=== PATIENT | male | born 1990 | race Caucasian/White ===

== ENCOUNTER 2020-08-06 10:19 | Emergency (ER) | payer BC, SELFPAY ==
[2020-08-06 10:30] VITALS: BP 131/80; PULSE 73; RESP 16; TEMP 35.8; O2SAT 100
--- NOTE | 2020-08-06 10:51 | ED.GENADULT ---
HPI - General Adult General Chief complaint: Headache Stated complaint: Migraine Time Seen by Provider: 08/06/20 10:22 Source: patient Mode of arrival: ambulatory Limitations: no limitations History of Present Illness HPI narrative: Patient presents for evaluation of headache that started last night. He states pain has been constant since that time. Pain is in occipital region, described as throbbing and rated 7/10 in severity. He denies overt photophobia, phonophobia, nausea or vomiting. He tried taking Tylenol and ibuprofen without much improvement in his symptoms thereafter. He states he had a similar episode on 07/20/20. He saw his PCP and was given an injection of toradol at that time. He states medication was effective for about 6-7 hrs before his symptoms returned. He had another episode about one week ago and symptoms resolved without intervention. He denies dysphagia, problems with memory/speech, lateralizing deficits. Related Data Home Medications Medication Instructions Recorded Confirmed sumatriptan succinate 50 mg PO .PRN PRN 08/06/20 08/06/20 Allergies Allergy/AdvReac Type Severity Reaction Status Date / Time No Known Allergies Allergy Verified 08/06/20 10:43 Review of Systems Review of Systems: Narrative: CONSTITUTIONAL: Denies fever, chills, or sweats. EYES: Denies visual changes, redness, or discharge. ENT: Denies rhinorrhea, congestion, sore throat, or otalgia. CARDIOVASCULAR: Denies chest pain, palpitations, or edema. RESPIRATORY: Denies cough or dyspnea. GASTROINTESTINAL: Denies abdominal pain, nausea, vomiting, or diarrhea. GENITOURINARY: Denies dysuria or hematuria. SKIN: Denies rash or itching. MUSCULOSKELETAL: Denies back pain, joint pain, or myalgia. NEUROLOGIC: Reports headache. Denies numbness, dizziness, or weakness. PSYCHIATRIC: Denies anxiety or depression. [facility] Past Medical History Medical History (Updated 08/06/20 @ 10:59 by STEPHANY Jones, JAZMYNE) No pertinent past medical history Surgical History Surgical History History of shoulder surgery Family History Family History Mother No pertinent past medical history Father No pertinent past medical history Social History Social History (Updated 08/06/20 @ 10:52 by Stiven Naranjo, [facility], ) Smoking status: Never smoker Alcohol intake: current Alcohol use details: social Substance use: never Living arrangements: with family Gender identity (if verbalized by the patient): Male Sexual Orientation (if Verbalized by the Patient): Straight or Heterosexual Spiritual care concerns: No Exam Narrative: Exam Narrative: GENERAL: Well-appearing, well-nourished, and in no acute distress. HEAD: Normocephalic, atraumatic. EYES: PERRLA and EOMI. ENT: Nares clear, no rhinorrhea or epistaxis. Mucous membranes moist. Oropharynx without tonsillar hypertrophy exudate or other lesions. Bilateral TMs pearly black nonbulging NECK: Supple. No adenopathy or masses. No carotid bruits or JVD CHEST: Clear to auscultation. No respiratory distress. No wheezes rales or rhonchi HEART: Regular rate and rhythm. No murmur heard. Normal peripheral pulses. ABDOMEN: Soft, nontender, nondistended, normal active bowel sounds. EXTREMITIES: Normal range of motion. No edema. SKIN: Warm, dry, no rash. NEURO: No focal deficits. Alert and oriented x3. Normal [id number] exam. Able to perform rapid alternating movements without difficulty. Comprehensive neurological exam intact. PSYCH: Normal mood and affect. Course Course Emergency Course: This is a 30-year-old male that presents with complaints of headache as of last night. He had similar symptoms on the 10th of this month and responded well to Toradol. He also had an additional episode about one week ago that resolved without intervention. His symptoms a
[2020-08-06] MEDS: KETOROLAC (*BKC) 60 MG/2 ML VIAL IM (10:59)
== END 2020-08-06 11:30 | disposition home or self-care (01) ==
PROVIDERS: Emergency Provider Nurse Practitioner; PCP Family Medicine Sports Medicine
DX: R51.9 Headache, unspecified (principal)
CPT/HCPCS: 96372; 99203; G0463; J1885

== ENCOUNTER 2023-08-09 18:40 | Emergency (ER) | payer BC, SELFPAY ==
--- NOTE | 2023-08-09 18:48 | ED.EXTPRO ---
HPI - Extremity Problem General Chief complaint: Extremity Problem,Nontraumatic Stated complaint: right elbow pain/work note Time Seen by Provider: 08/09/23 18:50 Source: patient, RN notes reviewed and old records reviewed Mode of arrival: ambulatory Limitations: no limitations History of Present Illness HPI Narrative: Patient presents with complaints of right elbow pain. Patient reports that he was doing repetitive tasks with the right hand for most of the day yesterday, noted pain and mild swelling by last night. Has been taking Tylenol with minimal relief. 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 Related Data Home Medications Medication Instructions Recorded Confirmed atogepant 60 mg tablet (Qulipta) 60 mg PO DAILY 08/09/23 08/09/23 buspirone 7.5 mg tablet 7.5 mg PO BID 08/09/23 08/09/23 citalopram 10 mg tablet 10 mg PO DAILY 08/09/23 08/09/23 Allergies Allergy/AdvReac Type Severity Reaction Status Date / Time No Known Allergies Allergy Verified 08/09/23 18:42 Review of Systems Review of Systems: All systems reviewed & are unremarkable except as noted in HPI and below Constitutional: Constitutional: Reports no additional constitutional complaints ENT: Reports system reviewed and no additional complaints, except as documented Cardiovascular: Cardiovascular: Reports no additional cardiovascular complaints Respiratory: Respiratory: Reports no additional respiratory complaints Musculoskeletal: Musculoskeletal: Reports arthralgias (Right elbow) [facility] Past Medical History Medical History No pertinent past medical history Surgical History Surgical History History of shoulder surgery Family History Family History Mother No pertinent past medical history Father No pertinent past medical history Social History Social History Smoking status: Never smoker Alcohol intake: current Alcohol use details: social Substance use: never Living arrangements: with family Gender identity (if verbalized by the patient): Male Sexual Orientation (if Verbalized by the Patient): Straight or Heterosexual Spiritual care concerns: No Comments At the time of my signature, I reviewed and agree with the nursing past medical, surgical, social, and family history. There is no relevant family history pertinent to the patient complaint. Exam Const: General: cooperative, no acute distress, alert and awake Orientation/consciousness: oriented to person, oriented to place and oriented to time HENMT: Head: normal to inspection Resp: Effort & Inspection: normal respiratory effort and able to speak in complete sentences Auscultation: clear to auscultation bilaterally, no crackles, no rales, no rhonchi and no wheezes Cardio: Palpation: normal PMI Rate: regular rate Rhythm: regular rhythm Heart sounds: S1 normal heart sound present and S2 normal heart sound present Neuro: General: oriented to person, oriented to place and oriented to time Cranial nerves: Yes CN's II-XII intact bilaterally Extrem: Right upper extremity: elbow/forearm swelling of the lateral epicondyle (mild) and normal ROM; no unusual warmth and no deformity Psych: Appearance: grossly normal Thought process: Normal thought process present Insight: Good insight present (Psych) Judgement: Good judgement present (Psych) Course Course Level of Care: Express Care Visit Vital Signs Vital signs: Reviewed MDM - Extremity (Nontraumatic) MDM Narrative Medical decision making narrative: Patient with full range of motion, nontraumatic right elbow pain consistent with tennis elbow. Rest ice compression elevation discussed. Prednisone for 5 days, work note for 3 days. Follow
[2023-08-09 18:49] VITALS: BP 130/81; PULSE 70; RESP 16; TEMP 37.1; O2SAT 99
== END 2023-08-09 19:02 | disposition home or self-care (01) ==
PROVIDERS: Emergency Provider Nurse Practitioner Family; PCP Family Medicine
DX: M77.11 Lateral epicondylitis, right elbow (principal)
CPT/HCPCS: 99213; G0463